=== PATIENT | female | born 1975 | race Caucasian/White ===

== ENCOUNTER 2019-07-16 19:00 | Emergency (ER) | payer OTHER ==
[2019-07-16] MEDS ORDERED: KETOROLAC 30 MG/ML 1 ML VIAL IVP STA (19:30)
[2019-07-16] MEDS ORDERED: ONDANSETRON 4 MG/2 ML VIAL IVP STA (19:30)
[2019-07-16] MEDS ORDERED: SODIUM CHLORIDE 0.9% 1,000 ML IV STA (19:30)
[2019-07-16] MEDS ORDERED: PANTOPRAZOLE 40 MG/10 ML VIAL IVP STA (19:30)
--- NOTE | 2019-07-16 19:38 | ED ---
Abdominal Pain HPI - General Chief Complaint: Abdominal Pain Stated Complaint: Back Pain Time Seen by Provider: 07/16/19 19:15 Source: patient, family Mode of arrival: ambulatory Limitations: physical limitation - History of Present Illness Initial Comments: Patient is a 44-year-old female presenting to emergency Department with chief complaint of abdominal pain. Her mother's there to interpret because the patient is deaf. Patient has been complaining of abdominal pain that began yesterday in the left lumbar region and gradually radiates along the left flank into the left groin. Patient also reports nausea with one episode of nonbloody his, nonbloody vomiting. Patient does report diarrhea for 3 days as well. Patient also reports her urine has changed darker in color. Patient does have previous abdominal history which includes a tummy tuck, tubal ligation, cholecystectomy. Patient does report chills but denies any fevers. Denies hematuria, hematochezia melena. Patient admits to smoking marijuana prior to ED arrival. Denies urgency frequency or dysuria. Denies any vaginal bleeding or discharge. - Related Data Previous Rx's Medication Instructions Recorded Ondansetron Odt [Zofran Odt] 4 mg PO Q8HR PRN #20 tab 07/16/19 Allergies Allergy/AdvReac Type Severity Reaction Status Date / Time steroids AdvReac Nausea & Uncoded 07/16/19 19:09 Vomiting & Diarrhea Review of Systems ROS Statement: Those systems with pertinent positive or pertinent negative responses have been documented in the HPI. ROS Other: All systems not noted in ROS Statement are negative. Past Medical History Past Medical History: Fibromyalgia, Seizure Disorder Additional Past Medical History / Comment(s): deaf History of Any Multi-Drug Resistant Organisms: None Reported Past Surgical History: Cholecystectomy, Ear Surgery, Tubal Ligation Additional Past Surgical History / Comment(s): abd surgery, D&C x 2 Past Psychological History: Anxiety, Depression Smoking Status: Current every day smoker Past Alcohol Use History: None Reported Past Drug Use History: Marijuana General Exam Limitations: language barrier General appearance: alert, in no apparent distress Head exam: Present: atraumatic, normocephalic, normal inspection Eye exam: Present: normal appearance, PERRL, EOMI Pupils: Present: normal accommodation ENT exam: Present: normal exam, normal oropharynx, mucous membranes moist, TM's normal bilaterally, normal external ear exam Neck exam: Present: normal inspection, full ROM Respiratory exam: Present: normal lung sounds bilaterally Cardiovascular Exam: Present: normal rhythm, tachycardia, normal heart sounds GI/Abdominal exam: Present: soft, tenderness (Suprapubic, left lower quadrant, left flank tenderness.), normal bowel sounds. Absent: distended, guarding, rebound Extremities exam: Present: normal inspection, full ROM, normal capillary refill Back exam: Present: normal inspection, full ROM, CVA tenderness (L) Neurological exam: Present: alert, oriented X3 Psychiatric exam: Present: normal affect, normal mood Skin exam: Present: warm, dry, intact, normal color Course Vital Signs 07/16/19 19:06 Temperature 99.1 F Pulse Rate 126 H Respiratory 20 Rate Blood Pressure 110/72 O2 Sat by Pulse 99 Oximetry Medical Decision Making - Medical Decision Making Patient is a 44-year-old female presenting to the emergency department with a chief complaint of abdominal pain nausea vomiting diarrhea. Patient developed gradual onset of left flank abdominal pain that radiates to the front left groin region. She does report a dark urine. She's had diarrhea for the last 3 days and nausea with one episode of vomiting since yesterday. Denies fevers but does report chills. No shortness of breath chest pain. On exam patient does have left CVA tenderness along with left flank and left lower quadrant abdominal tenderness. UA is unremarkable. Patient does show elevated white blood cells most likely secondary to vomiting. Rest of the physical examination is unremarkable. I suspect the patient has gastroenteritis. Patient given IV fluids, Protonix, antiemetics and Toradol. On reevaluation patient reports improvement his symptoms. Patient advised to follow a brat diet. Patient advised to return to emergency department if symptoms worsen. She was prescribed Zofran. Advised to follow primary care. Case discussed with physician. - Lab Data Result diagrams: 07/16/19 19:48 07/16/19 19:48 Lab Results 07/16/19 07/16/19 07/16/19 Range/Units 19:48 19:48 19:48 WBC 12.8 H (3.8-10.6) k/uL RBC 4.25 (3.80-5.40) m/uL Hgb 14.4 (11.4-16.0) gm/dL Hct 42.6 (34.0-46.0) % MCV 100.3 H (80.0-100.0) fL MCH 34.0 (25.0-35.0) pg MCHC 33.9 (31.0-37.0) g/dL RDW 12.0 (11.5-15.5) % Plt Count 300 (150-450) k/uL Neutrophils % 66 % Lymphocytes % 24 % Monocytes % 6 % Eosinophils % 1 % Basophils % 1 % Neutrophils # 8.5 H (1.3-7.7) k/uL Lymphocytes # 3.1 (1.0-4.8) k/uL Monocytes # 0.8 (0-1.0) k/uL Eosinophils # 0.2 (0-0.7) k/uL Basophils # 0.1 (0-0.2) k/uL Sodium 139 (137-145) mmol/L Potassium 3.8 (3.5-5.1) mmol/L Chloride 107 (98-107) mmol/L Carbon Dioxide 23 (22-30) mmol/L Anion Gap 9 mmol/L BUN 15 (7-17) mg/dL Creatinine 1.00 (0.52-1.04) mg/dL Est GFR (CKD-EPI)AfAm 81 (>60 ml/min/1.73 sqM) Est GFR (CKD-EPI)NonAf 70 (>60 ml/min/1.73 sqM) Glucose 107 H (74-99) mg/dL Calcium 9.6 (8.4-10.2) mg/dL Total Bilirubin 0.7 (0.2-1.3) mg/dL AST 16 (14-36) U/L ALT 9 (4-34) U/L Alkaline Phosphatase 55 (38-126) U/L Total Protein 7.5 (6.3-8.2) g/dL Albumin 4.4 (3.5-5.0) g/dL Urine Color Yellow Urine Appearance Clear (Clear) Urine pH 6.0 (5.0-8.0) Ur Specific [place] 1.013 (1.001-1.035) Urine Protein Negative (Negative) Urine Glucose (UA) Negative (Negative) Urine Ketones Negative (Negative) Urine Blood Negative (Negative) Urine Nitrite Negative (Negative) Urine Bilirubin Negative (Negative) Urine Urobilinogen <2.0 (<2.0) mg/dL Ur Leukocyte Esterase Negative (Negative) Disposition Clinical Impression: Gastroenteritis, Abdominal pain, Nausea vomiting and diarrhea Disposition: HOME SELF-CARE Condition: Stable Instructions (If sedation given, give patient instructions): Gastroenteritis (DC) Additional Instructions: Please take prescribed medication as directed. Follow a brat diet. Follow-up with primary care. Return to emergency department if symptoms worsen. Is patient prescribed a controlled substance at d/c from ED?: No Referrals: None,Stated [Primary Care Provider] - 1-2 days Time of Disposition: 20:37
[2019-07-16 20:06] LABS: Basophils # (A) 0.1 k/uL (0-0.2); Basophils % (A) 1 %; Eosinophils # (A) 0.2 k/uL (0-0.7); Eosinophils % (A) 1 %; HCT 42.6 % (34.0-46.0); HGB 14.4 gm/dL (11.4-16.0); Lymphocytes # (A) 3.1 k/uL (1.0-4.8); Lymphocytes % (A) 24 %; MCHC 33.9 g/dL (31.0-37.0); MCV 100.3 fL (80.0-100.0); Mean Platelet Volume 7.9; Monocytes # (A) 0.8 k/uL (0-1.0); Monocytes % (A) 6 %; Neutrophils # (A) 8.5 k/uL (1.3-7.7); Neutrophils % (A) 66 %; Platelet Count 300 k/uL (150-450); RBC 4.25 m/uL (3.80-5.40); WBC 12.8 k/uL (3.8-10.6)
[2019-07-16 20:10] LABS: Appearance,Urine Clear (Clear); Bilirubin,Urine Negative (Negative); Blood,Urine Negative (Negative); Color,Urine Yellow; Glucose,Urine (UA) Negative (Negative); Ketones,Urine Negative (Negative); Leukocyte Esterase,Urine Negative (Negative); Nitrite,Urine Negative (Negative); Protein,Urine Negative (Negative); Specific Gravity,Urine 1.013 (1.001-1.035); Urobilinogen,Urine <2.0 mg/dL (<2.0)
[2019-07-16 20:18] LABS: Albumin 4.4 g/dL (3.5-5.0); Calcium 9.6 mg/dL (8.4-10.2); Potassium 3.8 mmol/L (3.5-5.1); Total Bilirubin 0.7 mg/dL (0.2-1.3); Total Protein 7.5 g/dL (6.3-8.2)
[2019-07-16] MEDS ORDERED: ONDANSETRON 4 MG ODT STARTER PACK 2 TAB BTL PO STA (20:35)
[2019-07-16 21:01] VITALS: BP 121/78; PULSE 94; RESP 18; TEMP 98
== END 2019-07-16 21:01 | disposition home or self-care (01) ==
LOC: EC 19:00
DX: K52.9 Noninfective gastroenteritis and colitis, unspecified (principal); D72.829 Elevated white blood cell count, unspecified; R00.0 Tachycardia, unspecified; H91.90 Unspecified hearing loss, unspecified ear; F17.200 Nicotine dependence, unspecified, uncomplicated; Z88.8 Allergy status to other drugs, medicaments and biological substances; Z90.49 Acquired absence of other specified parts of digestive tract; Z98.51 Tubal ligation status
CPT/HCPCS: 36415; 80053; 85025; 81003; 99284; 96374; 96375 ×2; 96361; J2405; J1885; S0119; C9113

== ENCOUNTER 2020-05-21 16:03 | Emergency (ER) | payer OTHER ==
[2020-05-21 16:30] VITALS: RESP 18
[2020-05-21] MEDS ORDERED: ACETAMINOPHEN TAB 500 MG TAB PO STA (16:39)
[2020-05-21] MEDS ORDERED: ALBUTEROL HFA INHALER INHALATION STA (16:39)
[2020-05-21] MEDS ORDERED: SODIUM CHLORIDE 0.9% 1,000 ML IV ONE (16:40)
[2020-05-21] MEDS ORDERED: DEXAMETHASONE SOD PHOSPHATE 10 MG/ML 1 ML VIAL IV STA (16:41)
[2020-05-21] MEDS ORDERED: SODIUM CHLORIDE 0.9% 1,000 ML IV SCH (16:45)
--- NOTE | 2020-05-21 16:46 | ED ---
General Adult HPI - General Chief complaint: Upper Respiratory Infection Stated complaint: SOB,nausea Time Seen by Provider: 05/21/20 16:21 Source: patient, RN notes reviewed, old records reviewed Mode of arrival: ambulatory Limitations: language barrier - History of Present Illness Initial comments: 44 -year-old female presents emergency room today with complaints of shortness of breath, and cough. Patient is deaf. She reports that she started to have symptoms on May 16 of cough congestion and fevers. She reports that her COVID test is pending. Patient states that she has had a fever. She reports that her lungs sound like they're wet filling fluid. Patient denies any abdominal pain nausea vomiting or diarrhea. She is a smoker and it was being tested to be diagnosed for COPD but no official diagnosis at this time. - Related Data Home Medications Medication Instructions Recorded Confirmed Albuterol Inhaler [Ventolin Hfa 2 puff INHALATION RT-QID PRN 05/21/20 05/21/20 Inhaler] Umeclidinium [place] [Incruse 1 puff INHALATION RT-DAILY 05/21/20 05/21/20 Ellipta] Previous Rx's Medication Instructions Recorded Albuterol Inhaler [Ventolin Hfa 2 puff INHALATION ONCE #1 puff 05/21/20 Inhaler] Azithromycin [Zithromax Z-pack (6 250 mg PO DIRECTED #6 tab 05/21/20 tabs)] Zinc 50 mg PO DAILY #30 tablet 05/21/20 guaiFENesin-DM 600/30MG [Mucinex 1 each PO Q12HR #24 tab.er.12h 05/21/20 Dm] Allergies Allergy/AdvReac Type Severity Reaction Status Date / Time steroids AdvReac Nausea & Uncoded 05/21/20 18:21 Vomiting & Diarrhea Review of Systems ROS Statement: Those systems with pertinent positive or pertinent negative responses have been documented in the HPI. ROS Other: All systems not noted in ROS Statement are negative. Past Medical History Past Medical History: COPD, Fibromyalgia, Seizure Disorder Additional Past Medical History / Comment(s): deaf History of Any Multi-Drug Resistant Organisms: None Reported Past Surgical History: Cholecystectomy, Ear Surgery, Tubal Ligation Additional Past Surgical History / Comment(s): abd surgery, D&C x 2 Past Psychological History: Anxiety, Depression Smoking Status: Current every day smoker Past Alcohol Use History: None Reported Past Drug Use History: Marijuana General Exam - General Exam Comments Initial Comments: 44-year-old female, alert and oriented, no distress. Pt is Deaf. 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 . Limitations: language barrier Head exam: Present: atraumatic, normocephalic, normal inspection Eye exam: Present: normal appearance, PERRL, EOMI. Absent: scleral icterus, conjunctival injection, periorbital swelling ENT exam: Present: normal exam, mucous membranes moist Neck exam: Present: normal inspection. Absent: tenderness, meningismus, lymphadenopathy Respiratory exam: Present: wheezes. Absent: normal lung sounds bilaterally, respiratory distress, rales, rhonchi, stridor Cardiovascular Exam: Present: regular rate, normal rhythm, normal heart sounds. Absent: systolic murmur, diastolic murmur, rubs, gallop, clicks GI/Abdominal exam: Present: soft, normal bowel sounds. Absent: distended, tenderness, guarding, rebound, rigid Extremities exam: Present: normal inspection, full ROM, normal capillary refill. Absent: tenderness, pedal edema, joint swelling, calf tenderness Back exam: Present: normal inspection Neurological exam: Present: alert, oriented X3, CN II-XII intact Psychiatric exam: Present: normal affect, normal mood Course Vital Signs 05/21/20 05/21/20 05/21/20 16:14 16:29 16:30 Temperature 99.2 F Pulse Rate 112 H Respiratory 18 18 Rate Blood Pressure 160/89 O2 Sat by Pulse 95 Oximetry 05/21/20 05/21/20 19:21 19:31 Temperature 98.9 F 98.9 F Pulse Rate 80 80 Respiratory 18 18 Rate Blood Pressure 135/75 135/75 O2 Sat by Pulse 97 97 Oximetry Medical Decision Making - Medical Decision Making 44 year old female presents to ED for cough, congestion, headache and fatigue. She has positive COVID. Pt vitals are stable and normal Pulse ox. CXR shows no acute infiltrate. She was given IV fluids and labs were stable. Discussed appropriate return parameters and to take medications to support symptoms. Pt will be started on azithromycin as well. Discussed return parameters. - Lab Data Result diagrams: 05/21/20 17:24 05/21/20 17:24 Lab Results 05/21/20 05/21/20 05/21/20 Range/Units 17:24 17:24 17:24 WBC 11.7 H (3.8-10.6) k/uL RBC 4.59 (3.80-5.40) m/uL Hgb 15.8 (11.4-16.0) gm/dL Hct 45.5 (34.0-46.0) % MCV 99.0 (80.0-100.0) fL MCH 34.4 (25.0-35.0) pg MCHC 34.8 (31.0-37.0) g/dL RDW 11.6 (11.5-15.5) % Plt Count 266 (150-450) k/uL MPV 8.0 Neutrophils % 66 % Lymphocytes % 26 % Monocytes % 4 % Eosinophils % 1 % Basophils % 1 % Neutrophils # 7.7 (1.3-7.7) k/uL Lymphocytes # 3.1 (1.0-4.8) k/uL Monocytes # 0.5 (0-1.0) k/uL Eosinophils # 0.1 (0-0.7) k/uL Basophils # 0.1 (0-0.2) k/uL PT 9.7 (9.0-12.0) sec INR 0.9 (<1.2) APTT 25.2 (22.0-30.0) sec D-Dimer 0.61 H (<0.60) mg/L FEU Sodium 137 (137-145) mmol/L Potassium 5.4 H (3.5-5.1) mmol/L Chloride 111 H (98-107) mmol/L Carbon Dioxide 19 L (22-30) mmol/L Anion Gap 7 mmol/L BUN 8 (7-17) mg/dL Creatinine 0.72 (0.52-1.04) mg/dL Est GFR (CKD-EPI)AfAm >90 (>60 ml/min/1.73 sqM) Est GFR (CKD-EPI)NonAf >90 (>60 ml/min/1.73 sqM) Glucose 97 (74-99) mg/dL Plasma Lactic Acid [place] (0.7-2.0) mmol/L Calcium 9.2 (8.4-10.2) mg/dL Magnesium 2.1 (1.6-2.3) mg/dL Ferritin 135.1 (10.0-291.0) ng/mL Total Bilirubin 1.2 (0.2-1.3) mg/dL AST 38 H (14-36) U/L ALT 12 (4-34) U/L Alkaline Phosphatase 44 (38-126) U/L Lactate Dehydrogenase 1234 H (313-618) U/L C-Reactive Protein <5.0 (<10.0) mg/L Total Protein 8.0 (6.3-8.2) g/dL Albumin 4.5 (3.5-5.0) g/dL Procalcitonin (0.02-0.09) ng/mL Coronavirus (PCR) (Not Detectd) 05/21/20 05/21/20 05/21/20 Range/Units 17:24 17:24 18:21 WBC (3.8-10.6) k/uL RBC (3.80-5.40) m/uL Hgb (11.4-16.0) gm/dL Hct (34.0-46.0) % MCV (80.0-100.0) fL MCH (25.0-35.0) pg MCHC (31.0-37.0) g/dL RDW (11.5-15.5) % Plt Count (150-450) k/uL MPV Neutrophils % % Lymphocytes % % Monocytes % % Eosinophils % % Basophils % % Neutrophils # (1.3-7.7) k/uL Lymphocytes # (1.0-4.8) k/uL Monocytes # (0-1.0) k/uL Eosinophils # (0-0.7) k/uL Basophils # (0-0.2) k/uL PT (9.0-12.0) sec INR (<1.2) APTT (22.0-30.0) sec D-Dimer (<0.60) mg/L FEU Sodium (137-145) mmol/L Potassium (3.5-5.1) mmol/L Chloride (98-107) mmol/L Carbon Dioxide (22-30) mmol/L Anion Gap mmol/L BUN (7-17) mg/dL Creatinine (0.52-1.04) mg/dL Est GFR (CKD-EPI)AfAm (>60 ml/min/1.73 sqM) Est GFR (CKD-EPI)NonAf (>60 ml/min/1.73 sqM) Glucose (74-99) mg/dL Plasma Lactic Acid [place]rish 1.1 (0.7-2.0) mmol/L Calcium (8.4-10.2) mg/dL Magnesium (1.6-2.3) mg/dL Ferritin (10.0-291.0) ng/mL Total Bilirubin (0.2-1.3) mg/dL AST (14-36) U/L ALT (4-34) U/L Alkaline Phosphatase (38-126) U/L Lactate Dehydrogenase (313-618) U/L C-Reactive Protein (<10.0) mg/L Total Protein (6.3-8.2) g/dL Albumin (3.5-5.0) g/dL Procalcitonin 0.02 (0.02-0.09) ng/mL Coronavirus (PCR) Detected A (Not Detectd) 05/21/20 16:46 EKG shows normal sinus rhythm normal EKG. Ventricular rate of 96 bpm.. Interv als 160 ms. QS duration 74 ms. QT QTc is 344/434 ms. - Radiology Data Radiology results: report reviewed CXR is negative for acute cardiopulmonary process. Disposition Clinical Impression: COVID-19 Disposition: HOME SELF-CARE Condition: Good Instructions (If sedation given, give patient instructions): Upper Respiratory Infection (ED), Viral Syndrome (ED) Additional Instructions: Please use medication as discussed. Recommended purchasing pulse oximetry and checking if there are pulse ox was below 93% to return to the ER for reevaluation. Please follow up with family doctor if symptoms have not improved over the next two days. Please return to the emergency room if your symptoms increase or worsen or for any other concerns. Prescriptions: guaiFENesin-DM 600/30MG [Mucinex Dm] 1 each PO Q12HR #24 tab.er.12h Albuterol Inhaler [Ventolin Hfa Inhaler] 2 puff INHALATION ONCE #1 puff Zinc 50 mg PO DAILY #30 tablet Azithromycin [Zithromax Z-pack (6 tabs)] 250 mg PO DIRECTED #6 tab Is patient prescribed a controlled substance at d/c from ED?: No Referrals: None,Stated [Primary Care Provider] - 1-2 days Christiane Rich MD [REFERRING] - 1-2 days Time of Disposition: 19:24
--- NOTE | 2020-05-21 17:26 | XR ---
EXAMINATION TYPE: XR chest 1V portable DATE OF EXAM: 05/21/2020 COMPARISON: NONE HISTORY: Short of breath TECHNIQUE: Single view FINDINGS: Heart and mediastinum are normal. Lungs are clear. Diaphragm is normal. Bony thorax appears normal. IMPRESSION: Normal chest.
[2020-05-21 17:32] LABS: Basophils # (A) 0.1 k/uL (0-0.2); Basophils % (A) 1 %; Eosinophils # (A) 0.1 k/uL (0-0.7); Eosinophils % (A) 1 %; HCT 45.5 % (34.0-46.0); HGB 15.8 gm/dL (11.4-16.0); Lymphocytes # (A) 3.1 k/uL (1.0-4.8); Lymphocytes % (A) 26 %; MCH 34.4 pg (25.0-35.0); MCHC 34.8 g/dL (31.0-37.0); Monocytes # (A) 0.5 k/uL (0-1.0); Monocytes % (A) 4 %; Neutrophils # (A) 7.7 k/uL (1.3-7.7); Neutrophils % (A) 66 %; Platelet Count 266 k/uL (150-450); RBC 4.59 m/uL (3.80-5.40); RDW 11.6 % (11.5-15.5); WBC 11.7 k/uL (3.8-10.6)
[2020-05-21 17:44] LABS: ALT 12 U/L (4-34); AST 38 U/L (14-36); African American GFR (CKD) >90 (>60 ml/min/1.73 sqM); Albumin 4.5 g/dL (3.5-5.0); Alkaline Phosphatase 44 U/L (38-126); Anion Gap 7 mmol/L; Blood Urea Nitrogen 8 mg/dL (7-17); C Reactive Protein <5.0 mg/L (<10.0); Calcium 9.2 mg/dL (8.4-10.2); Carbon Dioxide 19 mmol/L (22-30); Chloride 111 mmol/L (98-107); Glucose 97 mg/dL (74-99); LDH 1234 U/L (313-618); Magnesium 2.1 mg/dL (1.6-2.3); Non-African American GFR(CKD) >90 (>60 ml/min/1.73 sqM); Sodium 137 mmol/L (137-145); Total Bilirubin 1.2 mg/dL (0.2-1.3)
[2020-05-21 17:47] LABS: INR 0.9 (<1.2); Partial Thromboplastin Time 25.2 sec (22.0-30.0); Prothrombin Time 9.7 sec (9.0-12.0)
[2020-05-21 17:50] LABS: Potassium 5.4 mmol/L (3.5-5.1)
[2020-05-21 17:52] LABS: D-Dimer 0.61 mg/L FEU (<0.60)
[2020-05-21 19:22] VITALS: BP 135/75; PULSE 80; TEMP 98.9
[2020-05-21] MEDS ORDERED: IBUPROFEN 600 MG STARTER PACK 4 TAB BTL PO STA (19:24)
[2020-05-21] MEDS ORDERED: IBUPROFEN 600 MG TAB PO STA (19:25)
[2020-05-21 23:07] LABS: Ferritin 135.1 ng/mL (10.0-291.0)
== END 2020-05-21 19:41 | disposition home or self-care (01) ==
LOC: EC 16:03
DX: U07.1 COVID-19 (principal); J44.9 Chronic obstructive pulmonary disease, unspecified; H91.90 Unspecified hearing loss, unspecified ear; F17.200 Nicotine dependence, unspecified, uncomplicated; Z79.899 Other long term (current) drug therapy; Z88.8 Allergy status to other drugs, medicaments and biological substances
CPT/HCPCS: 36415; 71045; 80053; 82728; 83605; 83615; 83735; 84145; 85025; 85379; 85610; 85730; 86140; 87040; 87635; 93005; 96360; 99284

== ENCOUNTER → 2020-07-25 | Outpatient (CLI) | payer OTHER | END | disposition home or self-care (01) | LOC: CPPFTMAIN 10:05 | PROVIDERS: ATTEND Family Medicine | DX: J44.9 Chronic obstructive pulmonary disease, unspecified (principal) | CPT/HCPCS: 94060; 94726; 94729 ==

== ENCOUNTER → 2020-09-13 | Outpatient (CLI) | payer OTHER ==
--- NOTE | 2020-09-15 10:58 | MM ---
Reason for exam: screening (asymptomatic). Physical Findings: A clinical breast exam by your physician is recommended on an annual basis and results should be correlated with mammographic findings. MG Screening Mammo w CAD Bilateral CC and MLO view(s) were taken. There are scattered fibroglandular densities. ASSESSMENT: Negative, BI-RAD 1 RECOMMENDATION: Routine screening mammogram of both breasts in 1 year.
== END | disposition home or self-care (01) ==
LOC: RADMAMWWP 13:06
PROVIDERS: ATTEND Family Medicine
DX: Z12.31 Encounter for screening mammogram for malignant neoplasm of breast (principal)
CPT/HCPCS: 77067

== ENCOUNTER → 2021-06-28 | Outpatient (CLI) | payer OTHER ==
--- NOTE | 2021-06-28 14:43 | CT ---
EXAMINATION TYPE: CT brain wo con DATE OF EXAM: 06/28/2021 COMPARISON: None HISTORY: Cervicalgia, polyarthritis CT DLP: 1079 mGycm. Automated Exposure Control for Dose Reduction was Utilized. TECHNIQUE: CT scan of the head is performed without contrast. FINDINGS: There is severe metallic streak artifact from postsurgical change involving the left calv arium resulting in nonvisualization of a large portion of the left cerebral hemisphere and distortion of portions of the right cerebral hemisphere. Exam is nearly nondiagnostic. Within the visualized po rtions of the brain parenchyma structures remain midline without evidence of displacement. Assessment for hemorrhage limited. Grossly craniocervical junction is maintained and visualized sella turcica n ormal. IMPRESSION: 1. Nearly nondiagnostic exam secondary to extreme artifact from the patient's postsurgical change inv olving the left calvarium.
== END | disposition home or self-care (01) ==
LOC: RADCTMAIN 14:14
PROVIDERS: ATTEND Psychiatry & Neurology Neurology
DX: M54.2 Cervicalgia (principal); M54.50 Low back pain, unspecified; M13.0 Polyarthritis, unspecified
CPT/HCPCS: 70450

== ENCOUNTER → 2021-06-28 | Outpatient (CLI) | payer OTHER ==
[2021-06-28 19:17] LABS: Basophils # (A) 0.07 X 10*3/uL (0.00-0.10); Basophils % (A) 0.6 %; Eosinophils # (A) 0.16 X 10*3/uL (0.04-0.35); Eosinophils % (A) 1.3 %; HCT 42.4 % (37.2-46.3); HGB 13.8 g/dL (12.0-15.0); Lymphocytes # (A) 3.27 X 10*3/uL (0.90-5.00); Lymphocytes % (A) 26.6 %; MCH 33.9 pg (27.0-32.0); MCHC 32.5 g/dL (32.0-37.0); MCV 104.2 fL (80.0-97.0); Monocytes # (A) 0.76 X 10*3/uL (0.20-1.00); Monocytes % (A) 6.2 %; Neutrophils # (A) 7.97 X 10*3/uL (1.80-7.70); Neutrophils % (A) 64.9 %; Platelet Count 323 X 10*3/uL (140-440); RBC 4.07 X 10*6/uL (4.10-5.20); RDW 12.3 % (11.5-14.5); WBC 12.28 X 10*3/uL (4.50-10.00)
[2021-06-28 19:41] LABS: African American GFR (CKD) 93.8 (60.0-200.0); Albumin 4.6 g/dL (3.8-4.9); Albumin/Globulin Ratio 1.78 (1.60-3.17); Anion Gap 14.5 mmol/L (10.00-18.00); BUN/Creat Ratio 9.1 Ratio (12.00-20.00); Calcium 9.4 mg/dL (8.7-10.3); Globulin 2.6 g/dL (1.6-3.3); Non-African American GFR(CKD) 80.9 (60.0-200.0); Potassium 3.8 mmol/L (3.5-5.5); T4, Free (Free Thyroxine) 1.19 ng/dL (0.800-1.800); Total Bilirubin 0.4 mg/dL (0.30-1.20); Total Protein 7.2 g/dL (6.2-8.2)
[2021-06-29 05:05] LABS: Anti-Smith Ab Interp NEGATIVE (NEGATIVE); Cyclic Citrull Pep IgG Unit <0.5 U/mL; Cyclic Citrullinated Pep IgG NEGATIVE (NEGATIVE)
== END | disposition home or self-care (01) ==
LOC: LABWHC1 13:33
PROVIDERS: ATTEND Psychiatry & Neurology Neurology
DX: I49.9 Cardiac arrhythmia, unspecified (principal); E55.9 Vitamin D deficiency, unspecified; E53.9 Vitamin B deficiency, unspecified; M13.0 Polyarthritis, unspecified
CPT/HCPCS: 36415; 80053; 82306; 82607; 84207; 84439; 84443; 84481; 85025; 86200; 86235; 93005

== ENCOUNTER → 2021-08-27 | Outpatient (CLI) | payer OTHER ==
--- NOTE | 2021-08-27 14:11 | CT ---
EXAMINATION TYPE: CT lumbar spine wo con DATE OF EXAM: 08/27/2021 COMPARISON: None HISTORY: 46-year-old female M47.816 SPONDYLOSIS, M54.50 LOW BACK PAIN, spondylosis, pain TECHNIQUE: Contiguous axial scanning of the lumbar spine without IV contrast. Coronal and sagittal re constructions performed. CT DLP: 725 mGycm Automated exposure control for dose reduction was used. FINDINGS: Low-density nodule in the left adrenal gland measuring 1.5 cm compatible with a lipid rich adrenal ad enoma. Cholecystectomy clips. Otherwise, no prevertebral or paravertebral soft tissue abnormality. Degenerative changes of the right SI joint asymmetric to the contralateral side. Vertebral body heights are preserved. Facet arthropathy lower lumbar spine. Trace grade 1 retrolisthesis L3-L4 and L4-5. Remaining alignment is maintained. Mild disc bulging at multiple levels. No large focal disc herniation or significant spinal canal stenosis seen. On the right, there is minimal inferior foraminal narrowing at L4-L5. On the left, mild left neural foraminal stenosis at L5-S1 IMPRESSION: 1. NO VERTEBRAL COMPRESSION COLLAPSE. MILD FACET ARTHROPATHY AND TRACE DEGENERATIVE GRADE 1 RETROLIST HESIS L3-L4 AND L4-L5. 2. MILD MULTILEVEL DEGENERATIVE DISC DISEASE WITH MILD DISC BULGING. NO LARGE FOCAL DISC HERNIATION O R EVIDENT SPINAL CANAL STENOSIS BY CT. 3. MILD LEFT NEUROFORAMINAL STENOSIS AT L5-S1. 4. ASYMMETRIC RIGHT SI JOINT OA. 5. 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
== END | disposition home or self-care (01) ==
LOC: RADCTMAIN 13:21
PROVIDERS: ATTEND Psychiatry & Neurology Neurology
DX: M47.816 Spondylosis without myelopathy or radiculopathy, lumbar region (principal); M51.36 Other intervertebral disc degeneration, lumbar region; M51.26 Other intervertebral disc displacement, lumbar region; M99.73 Connective tissue and disc stenosis of intervertebral foramina of lumbar region; M46.1 Sacroiliitis, not elsewhere classified; D35.02 Benign neoplasm of left adrenal gland
CPT/HCPCS: 72131

== ENCOUNTER 2022-06-29 19:24 | Emergency (ER) | payer OTHER ==
[2022-06-29 19:31] VITALS: RESP 18; TEMP 98.7
--- NOTE | 2022-06-29 19:42 | ED ---
General Adult HPI - General Chief complaint: Chest Pain Stated complaint: abd pain Time Seen by Provider: 06/29/22 19:29 Source: patient, family Mode of arrival: EMS - History of Present Illness Initial comments: This is a 46-year-old female with a past medical history including recently diagnosed lupus yesterday just recently started on Cymbalta today, fibromyalgia and hearing impairment presents emergency department via EMS for chest burning. It was reported that the patient had burning across her chest and neck that happened while she was laying down approximately an hour prior to arrival. The patient was hearing impaired however her son was at the bedside and was tra nslating via sign language. She did state that the pain has improved with the medications given by EMS including aspirin and Zofran. On evaluation, the patient did not have any shortness of breath or difficulty in breathing. The patient did state that the Cymbalta was started approximately 2 hours prior to the patient's symptoms beginning. The patient did not complain of any other acute pain or complaints at this time. The patient was resting in bed comfortably. - Related Data Home Medications Medication Instructions Recorded Confirmed Albuterol Inhaler [Ventolin Hfa 2 puff INHALATION RT-QID PRN 05/21/20 05/21/20 Inhaler] Umeclidinium Chunky [Incruse 1 puff INHALATION RT-DAILY 05/21/20 05/21/20 Ellipta] Previous Rx's Medication Instructions Recorded Albuterol Inhaler [Ventolin Hfa 2 puff INHALATION ONCE #1 puff 05/21/20 Inhaler] Azithromycin [Zithromax Z-pack (6 250 mg PO DIRECTED #6 tab 05/21/20 tabs)] Zinc 50 mg PO DAILY #30 tablet 05/21/20 guaiFENesin-DM 600/30MG [Mucinex 1 each PO Q12HR #24 tab.er.12h 05/21/20 Dm] Allergies Allergy/AdvReac Type Severity Reaction Status Date / Time Iodine and Iodide Containing AdvReac Rash/Hives Verified 06/29/22 19:34 Produc steroids AdvReac Nausea & Uncoded 05/21/20 18:21 Vomiting & Diarrhea Review of Systems ROS Statement: Those systems with pertinent positive or pertinent negative responses have been documented in the HPI. ROS Other: All systems not noted in ROS Statement are negative. Past Medical History Past Medical History: COPD, Fibromyalgia, Seizure Disorder Additional Past Medical History / Comment(s): deaf History of Any Multi-Drug Resistant Organisms: None Reported Past Surgical History: Cholecystectomy, Ear Surgery, Tubal Ligation Additional Past Surgical History / Comment(s): abd surgery, D&C x 2 Past Psychological History: Anxiety, Depression Smoking Status: Current every day smoker Past Alcohol Use History: None Reported Past Drug Use History: Marijuana General Exam Limitations: language barrier (Patient has hearing impairment and was having her son provide translation via sign language) General appearance: alert, in no apparent distress Head exam: Present: atraumatic, normocephalic, normal inspection Eye exam: Present: normal appearance, PERRL Pupils: Present: normal accommodation ENT exam: Present: normal exam, normal oropharynx, mucous membranes moist Neck exam: Present: normal inspection, full ROM Respiratory exam: Present: normal lung sounds bilaterally Cardiovascular Exam: Present: regular rate, normal rhythm, normal heart sounds GI/Abdominal exam: Present: soft, normal bowel sounds Extremities exam: Present: normal inspection, full ROM Back exam: Present: normal inspection, full ROM Neurological exam: Present: alert, oriented X3, CN II-XII intact Psychiatric exam: Present: normal affect, normal mood Skin exam: Present: warm, dry Course Vital Signs 06/29/22 19:25 Temperature 98.7 F Pulse Rate 93 Respiratory 18 Rate Blood Pressure 146/76 O2 Sat by Pulse 96 Oximetry EKG Findings - EKG Comments: EKG Findings:: In EKG was obtained and was interpreted by myself. Rate was 81, IL interval was 146, QRS duration of 81 and QTC of 387. This EKG showed a normal sinus rhythm with no ST segment elevation or depression noted. Medical Decision Making - Medical Decision Making Was pt. sent in by a medical professional or institution (, PA, TAPE KELLER OPERATOR, urgent care, hospital, or assisted...) When possible be specific @ -No Did you speak to anyone other than the patient for history (EMS, parent, family, police, friend...)? What history was obtained from this source @ -Yes, the patient son. Patient's son was the instructor bus [employer] and [employer] as the patient has a hearing impairment and requires sign language Did you review nursing and triage notes (agree or disagree)? Why? @ -I reviewed and agree with nursing and triage notes Were old charts reviewed (outside hosp., previous admission, EMS record, old EKG, old radiological studies, urgent care reports/EKG's, assisted records)? Report findings @ -No old charts were reviewed Differential Diagnosis (chest pain, altered mental status, abdominal pain women, abdominal pain men, vaginal bleeding, weakness, fever, dyspnea, syncope, headache, dizziness, GI bleed, back pain, seizure, CVA, palpatations, mental health)? @ -ACS, chest wall muscle strain, medication reaction EKG interpreted by me (3pts min.). @ -As above X-rays interpreted by me (1pt min.). @ -Chest x-ray was obtained and was interpreted by myself showing no acute process. CT interpreted by me (1pt min.). @ -None done U/S interpreted by me (1pt. min.). @ -None done What testing was considered but not performed or refused? (CT, X-rays, U/S, labs)? Why? @ -None What meds were considered but not given or refused? Why? @ -None Did you discuss the management of the patient with other professionals (professionals i.e. , PA, TAPE KELLER OPERATOR, lab, RT, psych nurse, protective services social worker, family lawyer, teacher, electronic intelligence officer, keycase assembler)? Give summary @ -No Was smoking cessation discussed for >3mins.? @ -No Was critical care preformed (if so, how long)? @ -No Were there social determinants of health that impacted care today? How? (Homelessness, low income, unemployed, alcoholism, drug addiction, transportation, low edu. Level, literacy, decrease access to med. care, longterm, rehab)? @ -No Was there de-escalation of care discussed even if they declined (Discuss DNR or withdrawal of care, Hospice)? DNR status @ -No What co-morbidities impacted this encounter? (DM, HTN, Smoking, COPD, CAD, Cancer, CVA, ARF, Chemo, Hep., AIDS, mental health diagnosis, sleep apnea, morbid obesity)? @ -Fibromyalgia, lupus, hearing impairment requiring sign language Was patient admitted / discharged? Hospital course, mention meds given and route, prescriptions, significant lab abnormalities, going to OR and other pe rtinent info. @ -The patient was seen and evaluated in the emergency department. Physical exam, the patient was resting in bed without any acute distress. Vital signs were stable. Laboratory workup was within normal limits and chest x-ray was negative. On reevaluation, the patient did not have any further chest pain or discomfort. The patient's episode of chest pain and burning was likely secondary to the initiation of her medication, Cymbalta. The patient was advised to not take his medication and to follow-up with her primary care physician instead to talk over the medication usage. The patient did have any further complaints and was deemed stable for discharge at this time. The patient's mother and patient son were at the bedside and were able to translate for the patient and they did have all their questions answered appropriate. The patient was discharged home in stable condition with her mother and son. Undiagnosed new problem with uncertain prognosis? @ -No Drug Therapy requiring intensive monitoring for toxicity (Heparin, Nitro, Insulin, Cardizem)? @ -No Were any procedures done? @ -No Diagnosis/symptom? @ -Atypical chest pain, possible medication reaction Acute, or Chronic, or Acute on Chronic? @ -Acute Uncomplicated (without systemic symptoms) or Complicated (systemic symptoms)? @ -Uncomplicated Side effects of treatment? @ -No Exacerbation, Progression, or Severe Exacerbation? @ -No Poses a threat to life or bodily function? How? (Chest pain, USA, MD, pneumonia, PE, COPD, DKA, ARF, appy, cholecystitis, CVA, Diverticulitis, Homicidal, Suicidal, threat to staff... and all critical care pts) @ -No - Lab Data Result diagrams: 06/29/22 19:45 06/29/22 19:45 Lab Results 06/29/22 06/29/22 06/29/22 Range/Units 19:45 19:45 19:45 WBC 11.3 H (3.8-10.6) k/uL RBC 3.87 (3.80-5.40) m/uL Hgb 13.6 (11.4-16.0) gm/dL Hct 40.3 (34.0-46.0) % MCV 104.2 H (80.0-100.0) fL MCH 35.3 H (25.0-35.0) pg MCHC 33.8 (31.0-37.0) g/dL RDW 13.0 (11.5-15.5) % Plt Count 307 (150-450) k/uL MPV 8.3 Neutrophils % 59 % Lymphocytes % 31 % Monocytes % 5 % Eosinophils % 1 % Basophils % 1 % Neutrophils # 6.7 (1.3-7.7) k/uL Lymphocytes # 3.5 (1.0-4.8) k/uL Monocytes # 0.6 (0-1.0) k/uL Eosinophils # 0.2 (0-0.7) k/uL Basophils # 0.1 (0-0.2) k/uL Macrocytosis Slight Sodium (137-145) mmol/L Potassium (3.5-5.1) mmol/L Chloride (98-107) mmol/L Carbon Dioxide (22-30) mmol/L Anion Gap mmol/L BUN (7-17) mg/dL Creatinine (0.52-1.04) mg/dL Est GFR (CKD-EPI)AfAm (>60 ml/min/1.73 sqM) Est GFR (CKD-EPI)NonAf (>60 ml/min/1.73 sqM) Glucose (74-99) mg/dL Calcium (8.4-10.2) mg/dL Magnesium (1.6-2.3) mg/dL Total Bilirubin (0.2-1.3) mg/dL AST (14-36) U/L ALT (4-34) U/L Alkaline Phosphatase (38-126) U/L Troponin I <0.012 (0.000-0.034) ng/mL NT-Pro-B Natriuret Pep 71 pg/mL Total Protein (6.3-8.2) g/dL Albumin (3.5-5.0) g/dL 06/29/22 Range/Units 19:45 WBC (3.8-10.6) k/uL RBC (3.80-5.40) m/uL Hgb (11.4-16.0) gm/dL Hct (34.0-46.0) % MCV (80.0-100.0) fL MCH (25.0-35.0) pg MCHC (31.0-37.0) g/dL RDW (11.5-15.5) % Plt Count (150-450) k/uL MPV Neutrophils % % Lymphocytes % % Monocytes % % Eosinophils % % Basophils % % Neutrophils # (1.3-7.7) k/uL Lymphocytes # (1.0-4.8) k/uL Monocytes # (0-1.0) k/uL Eosinophils # (0-0.7) k/uL Basophils # (0-0.2) k/uL Macrocytosis Sodium 137 (137-145) mmol/L Potassium 4.1 (3.5-5.1) mmol/L Chloride 107 (98-107) mmol/L Carbon Dioxide 27 (22-30) mmol/L Anion Gap 3 mmol/L BUN 12 (7-17) mg/dL Creatinine 0.96 (0.52-1.04) mg/dL Est GFR (CKD-EPI)AfAm 83 (>60 ml/min/1.73 sqM) Est GFR (CKD-EPI)NonAf 72 (>60 ml/min/1.73 sqM) Glucose 97 (74-99) mg/dL Calcium 8.9 (8.4-10.2) mg/dL Magnesium 2.1 (1.6-2.3) mg/dL Total Bilirubin 0.6 (0.2-1.3) mg/dL AST 15 (14-36) U/L ALT 11 (4-34) U/L Alkaline Phosphatase 55 (38-126) U/L Troponin I (0.000-0.034) ng/mL NT-Pro-B Natriuret Pep pg/mL Total Protein 6.1 L (6.3-8.2) g/dL Albumin 3.6 (3.5-5.0) g/dL Disposition Clinical Impression: Atypical chest pain Disposition: HOME SELF-CARE Condition: Stable Instructions (If sedation given, give patient instructions): Chest Pain (ED) Is patient prescribed a controlled substance at d/c from ED?: No Referrals: None,Stated [REFERRING] - 1-2 days Time of Disposition: 20:55
[2022-06-29 20:00] LABS: Basophils # (A) 0.1 k/uL (0-0.2); Basophils % (A) 1 %; Eosinophils # (A) 0.2 k/uL (0-0.7); Eosinophils % (A) 1 %; HCT 40.3 % (34.0-46.0); HGB 13.6 gm/dL (11.4-16.0); Lymphocytes # (A) 3.5 k/uL (1.0-4.8); Lymphocytes % (A) 31 %; MCH 35.3 pg (25.0-35.0); MCHC 33.8 g/dL (31.0-37.0); MCV 104.2 fL (80.0-100.0); Macrocytosis Slight; Mean Platelet Volume 8.3; Monocytes # (A) 0.6 k/uL (0-1.0); Monocytes % (A) 5 %; Neutrophils # (A) 6.7 k/uL (1.3-7.7); Neutrophils % (A) 59 %; Platelet Count 307 k/uL (150-450); RBC 3.87 m/uL (3.80-5.40); WBC 11.3 k/uL (3.8-10.6)
[2022-06-29 20:14] LABS: Albumin 3.6 g/dL (3.5-5.0); Calcium 8.9 mg/dL (8.4-10.2); Magnesium 2.1 mg/dL (1.6-2.3); Potassium 4.1 mmol/L (3.5-5.1); Total Bilirubin 0.6 mg/dL (0.2-1.3); Total Protein 6.1 g/dL (6.3-8.2)
--- NOTE | 2022-06-29 20:32 | XR ---
EXAMINATION TYPE: XR chest 2V DATE OF EXAM: 06/29/2022 COMPARISON: 05/21/2020 HISTORY: Weakness TECHNIQUE: 2 views FINDINGS: There is no heart failure nor confluent pneumonic infiltrate. Costophrenic angles are clear . Bony thorax is intact. IMPRESSION: No active cardiopulmonary disease. Normal heart. No change.
[2022-06-29 21:14] VITALS: BP 126/64; PULSE 76
== END 2022-06-29 21:05 | disposition home or self-care (01) ==
LOC: EC 19:24
DX: R07.89 Other chest pain (principal); F17.200 Nicotine dependence, unspecified, uncomplicated; F12.90 Cannabis use, unspecified, uncomplicated; Z88.8 Allergy status to other drugs, medicaments and biological substances; Z90.49 Acquired absence of other specified parts of digestive tract
CPT/HCPCS: 36415; 71046; 80053; 83735; 83880; 84484; 85025; 93005; 99285